=== PATIENT | female | born 1975 | race Asian ===

== ENCOUNTER 2019-08-22 11:47 | Inpatient (IN) | payer BC, OTHER ==
--- NOTE | 2019-08-22 14:38 | PDOC ---
History of Present Illness - General History Source: Patient Exam Limitations: Clinical Condition - History of Present Illness Initial Comments: 08/22/19 14:31 Patient with no significant past medical history centime by PCP for admission due to midsternal chest pain since yesterday with intermittent shortness of breath. Patient reports chest pain is resolved now. Patient reported paternal history of MT at age of 78. Denies numbness or tingling sensation, nausea, vomiting, dizziness, weakness. Denies any other symptoms Is this a multiple visit Asthma Patient?: No Timing/Duration: 24 hours <Devon Molina - Last Filed: 08/22/19 14:47> <Melquiades Duran - Last Filed: 08/22/19 15:42> - General Chief Complaint: Chest Pain Stated Complaint: SENT BY PCP Time Seen by Provider: 08/22/19 14:02 Past History - Past Medical History COPD: No - Immunization History Immunization Up to Date: No - Psycho Social/Smoking Cessation Hx Smoking History: Never smoked Have you smoked in the past 12 months: No Information on smoking cessation initiated: No Hx Alcohol Use: No Drug/Substance Use Hx: No <Devon Molina - Last Filed: 08/22/19 14:47> <Melquiades Duran - Last Filed: 08/22/19 15:42> - Past Medical History Allergies/Adverse Reactions: Allergies Allergy/AdvReac Type Severity Reaction Status Date / Time No Known Allergies Allergy Verified 08/22/19 12:04 Home Medications: Ambulatory Orders NK [No Known Home Medication] 08/22/19 Review of Systems - Review of Systems Able to Perform ROS?: Yes Is the patient limited Kinyarwanda proficient: No Constitutional: No: Chills, Fever, Malaise Respiratory: No: Symptoms reported, See HPI, Cough, Orthopnea, Shortness of Breath, SOB with Exertion, SOB at Rest, Stridor, Wheezing, Productive cough, Hemoptysis, Other Cardiac (ROS): Yes: Symptoms Reported, See HPI, Chest Pain (mid-sternum CP resolved). No: Edema, Irregular Heart Rate, Lightheadedness, Palpitations, Syncope, Chest Tightness, Other ABD/GI: No: Nausea, Vomiting, Abdominal cramping Musculoskeletal: No: Symptoms Reported Neurological: No: Symptoms reported, Headache, Numbness, Paresthesia, Seizure, Ataxia, Dizziness All Other Systems: Reviewed and Negative <Devon Molina - Last Filed: 08/22/19 14:47> *Physical Exam - Vital Signs Last Vital Signs Temp Pulse Resp BP Pulse Ox 98.4 F 97 H 18 114/82 98 08/22/19 12:00 08/22/19 12:00 08/22/19 12:00 08/22/19 12:00 08/22/19 12:00 - Physical Exam Comments: 08/22/19 14:41 GENERAL: Well developed, well nourished. Awake and alert. No acute distress. HEENT: Normocephalic, atraumatic. PERRLA, EOMI. No conjunctival pallor. Sclera are non-icteric. Moist mucous membranes. Oropharynx is clear. NECK: Supple. Full ROM. CARDIOVASCULAR: Regular rate and rhythm. No murmurs, rubs, or gallops. Distal pulses are 2+ and symmetric. PULMONARY: No evidence of respiratory distress. Lungs clear to auscultation bilaterally. No wheezing, rales or rhonchi. ABDOMINAL: Soft. Non-tender. Non-distended. No rebound or guarding. No organomegaly. Normoactive bowel sounds. MUSCULOSKELETAL Normal range of motion at all joints. SKIN: Warm and dry. Normal capillary refill. No rashes. No cyanosis. NEUROLOGICAL: Alert, awake, appropriate. Gait is normal without ataxia. PSYCHIATRIC: Cooperative. Good eye contact. Appropriate mood General Appearance: Yes: Nourished, Appropriately Dressed. No: Apparent Distress <Devon Molina - Last Filed: 08/22/19 14:47> - Vital Signs Last Vital Signs Temp Pulse Resp BP Pulse Ox 98.4 F 97 H 18 114/82 98 08/22/19 12:00 08/22/19 12:00 08/22/19 12:00 08/22/19 12:00 08/22/19 12:00 <Melquiades Duran - Last Filed: 08/22/19 15:42> ED Treatment Course - LABORATORY CBC & Chemistry Diagram: 08/22/19 14:18 08/22/19 14:18 <Devon Molina - Last Filed: 08/22/19 14:47> - LABORATORY CBC & Chemistry Diagram: 08/22/19 14:18 08/22/19 14:18 - ADDITIONAL ORDERS Additional order review: Laboratory Results 08/22/19 08/22/19 08/22/19 14:18 14:18 14:18 PT with INR 12.20 INR 1.03 PTT (Actin FS) 38.7 H Sodium 137 Potassium 3.6 Chloride 102 Carbon Dioxide 29 Anion Gap 6 L BUN 11.0 Creatinine 0.6 Est GFR (CKD-EPI)AfAm 126.69 Est GFR (CKD-EPI)NonAf 109.31 Random Glucose 99 Calcium 9.1 Total Bilirubin 0.6 AST 13 L ALT 20 Alkaline Phosphatase 55 Creatine Kinase Troponin I Total Protein 8.0 Albumin 4.0 Serum , Qual Negative 08/22/19 14:18 PT with INR INR PTT (Actin FS) Sodium Potassium Chloride Carbon Dioxide Anion Gap BUN Creatinine Est GFR (CKD-EPI)AfAm Est GFR (CKD-EPI)NonAf Random Glucose Calcium Total Bilirubin AST ALT Alkaline Phosphatase Creatine Kinase 118 Troponin I < 0.02 Total Protein Albumin Serum , Qual 08/22/19 14:18 RBC 4.36 MCV 87.6 MCHC 33.7 RDW 13.1 MPV 9.0 Neutrophils % 55.0 Lymphocytes % 35.3 Monocytes % 7.9 Eosinophils % 0.8 Basophils % 1.0 - RADIOLOGY Radiology Studies Ordered: Category Date Time Status CXRPORT [CHEST X-RAY PORTABLE*] [RAD] Stat Radiology 08/22/19 14:03 Ordered <Melquiades Duran - Last Filed: 08/22/19 15:42> Medical Decision Making - Medical Decision Making 08/22/19 14:33 Patient with no significant past medical history centime by PCP for admission due to midsternal chest pain since yesterday with intermittent shortness of breath. Patient reports chest pain is resolved now. Patient reported paternal history of MT at age of 78. Denies numbness or tingling sensation, nausea, vomiting, dizziness, weakness. Patient report had one episode of elevated blood pressure 2 weeks ago but has no diagnosis of hypertension Denies any other symptoms Clinical exam unremarkable with normal cardiac lung exam. EKG shows normal sinus rhythm. Patient no acute distress. Called and spoke over to patient PCP Dr. Barton who wants patient admitted with cardiology Dr. Mayen consult for echo tomorrow. CBC, CMP, PT, PTT urine hCG and cardiac profile lab ordered. Chest x-ray ordered to rule out acute chest pathology. <Devon Molina - Last Filed: 08/22/19 14:47> - Medical Decision Making 08/22/19 15:41 I reviewed the case of the mid-level practitioner and was available for consultation while in the emergency department <Melquiades Duran - Last Filed: 08/22/19 15:42> Discharge - Discharge Information Problems reviewed: Yes - Admission Yes <Devon Molina - Last Filed: 08/22/19 14:47> <Melquiades Duran - Last Filed: 08/22/19 15:42> - Discharge Information Clinical Impression/Diagnosis: Chest pain Qualifiers: Chest pain type: unspecified Qualified Code(s): R07.9 - Chest pain, unspecified Condition: Stable Disposition: HOME
[2019-08-22 14:42] LABS: EOS % 0.8 % (0-4.5); HEMATOCRIT 38.2 % (32.4-45.2); HEMOGLOBIN 12.9 GM/dL (10.7-15.3); LYMPH % 35.3 % (8-40); MCH 29.5 pg (25.7-33.7); MCHC 33.7 g/dl (32.0-36.0); MEAN CELL VOLUME 87.6 fl (80-96); MONO % 7.9 % (3.8-10.2); PLATELET COUNT 236 K/MM3 (134-434); RBC 4.36 M/mm3 (3.60-5.2); RDW 13.1 % (11.6-15.6); WHITE BLOOD COUNT 7.3 K/mm3 (4.0-10.0)
[2019-08-22 15:10] LABS: INR 1.03 (0.83-1.09); PROTHROMBIN TIME (PATIENT) 12.2 SEC (9.7-13.0)
[2019-08-22 15:13] LABS: ACTIVATED PTT 38.7 SECONDS (25.2-36.5)
[2019-08-22 15:15] LABS: BILIRUBIN,TOTAL 0.6 mg/dL (0.2-1); CALCIUM 9.1 mg/dL (8.5-10.1); CREATININE 0.6 mg/dL (0.55-1.3); POTASSIUM 3.6 mmol/L (3.5-5.1)
--- NOTE | 2019-08-22 16:28 | HP ---
Admitting History and Physical - Primary Care Physician PCP: Padmini Love - Admission Chief Complaint: chest pain History of Present Illness: Patient is a 44 y/o female with no significant past medical history. Patient was sent by PCP to ER for evaluation of chest pain. Patient states that yesterday she develop non-radiating, pressure like mid chest pain accompanied with SOB. Denies experiencing dizziness, palpitations with chest pain. There were no alleviating or exacerbating factors. History Source: Patient Limitations to Obtaining History: No Limitations - Smoking History Smoking history: Never smoked Have you smoked in the past 12 months: No - Alcohol/Substance Use Hx Alcohol Use: No - Social History Usual Living Arrangement: Yes: With Spouse ADL: Independent History of Recent Travel: No Home Medications - Allergies Allergies/Adverse Reactions: Allergies Allergy/AdvReac Type Severity Reaction Status Date / Time No Known Allergies Allergy Verified 08/22/19 12:04 - Home Medications Home Medications: Ambulatory Orders NK [No Known Home Medication] 08/22/19 Review of Systems - Review of Systems Constitutional: reports: No Symptoms Eyes: reports: No Symptoms HENT: reports: No Symptoms Neck: reports: No Symptoms Cardiovascular: reports: Chest Pain, Shortness of Breath Respiratory: reports: No Symptoms Gastrointestinal: reports: No Symptoms Genitourinary: reports: No Symptoms Breasts: reports: No Symptoms Reported Musculoskeletal: reports: No Symptoms Integumentary: reports: No Symptoms Neurological: reports: No Symptoms Endocrine: reports: No Symptoms Hematology/Lymphatic: reports: No Symptoms Psychiatric: reports: No Symptoms Physical Examination Vital Signs: Vital Signs Temperature 98.4 F 08/22/19 12:00 Pulse Rate 97 H 08/22/19 12:00 Respiratory Rate 18 08/22/19 12:00 Blood Pressure 114/82 08/22/19 12:00 O2 Sat by Pulse Oximetry (%) 98 08/22/19 12:00 Constitutional: Yes: No Distress, Calm Eyes: Yes: Conjunctiva Clear HENT: Yes: Atraumatic Neck: Yes: Supple Cardiovascular: Yes: Regular Rate and Rhythm Respiratory: Yes: Regular, CTA Bilaterally Gastrointestinal: Yes: Normal Bowel Sounds, Soft Musculoskeletal: Yes: WNL Extremities: Yes: WNL Edema: No Neurological: Yes: Alert, Oriented Psychiatric: Yes: Alert, Oriented Labs: CBC, BMP 08/22/19 14:18 08/22/19 14:18 Problem List - Problems (1) Chest pain Assessment/Plan: -Cardiology on board -tele monitoring -trop neg x 1 -stress test -nitro prn for chest pain -stress echo Code(s): R07.9 - CHEST PAIN, UNSPECIFIED Qualifiers: Chest pain type: unspecified Qualified Code(s): R07.9 - Chest pain, unspecified Assessment/Plan see problem list dvt ppx
--- NOTE | 2019-08-22 16:59 | CON.CARD ---
Consult Consult Specialty:: Cardiology Reason for Consultation:: Chest pain - History of Present Illness Chief Complaint: Chest pain History of Present Illness: This is a 44 year old female with no significant PMH other than gestational DM. She presents now with chest pain that occurred yesterday. She described a mid sternal pain that was non radiating, occurred while she was mopping the floor and lasted about one hour. Family History: father had an ME at age 80. EKG NSR with no acute changes. Trop x 1 negative - Alcohol/Substance Use Hx Alcohol Use: No - Smoking History Smoking history: Never smoked Have you smoked in the past 12 months: No Home Medications - Allergies Allergies/Adverse Reactions: Allergies Allergy/AdvReac Type Severity Reaction Status Date / Time No Known Allergies Allergy Verified 08/22/19 12:04 - Home Medications Home Medications: Ambulatory Orders NK [No Known Home Medication] 08/22/19 Vital Signs: Vital Signs Temperature 98.4 F 08/22/19 12:00 Pulse Rate 97 H 08/22/19 12:00 Respiratory Rate 18 08/22/19 12:00 Blood Pressure 114/82 08/22/19 12:00 O2 Sat by Pulse Oximetry (%) 98 08/22/19 12:00 Constitutional: Yes: Well Nourished Eyes: Yes: WNL HENT: Yes: WNL Neck: Yes: WNL Respiratory: Yes: WNL, CTA Bilaterally Gastrointestinal: Yes: Soft Cardiovascular: Yes: Regular Rate and Rhythm Heart Sounds: Yes: S1, S2 Edema: No Neurological: Yes: Alert, Oriented - Other Data Labs, Other Data: CBC, BMP 08/22/19 14:18 08/22/19 14:18 INR, PTT INR 1.03 (0.83-1.09) 08/22/19 14:18 Troponin, BNP 08/22/19 14:18 Troponin I < 0.02 Troponin, BNP 08/22/19 14:18 Troponin I < 0.02 Assessment/Plan 44 year old female with no significant PMH other than gestational DM. She presents now with chest pain that occurred yesterday. She described a mid sternal pain that was non radiating, occurred while she was mopping the floor and lasted about one hour. EKG NSR with no acute changes. Trop x 1 negative Chest pain Finish troponin sets Would evaluate with a stress test (I preferred stress echocardiograms in young female patients) She is on no medications at this time.
[2019-08-22] MEDS ORDERED: NITROGLYCERIN SUBLINGUAL 1/150 0.4 MG TAB SL PRN (21:07)
[2019-08-22] MEDS ORDERED: ACETAMINOPHEN 325 MG TABLET (FP) PO PRN (21:11)
[2019-08-23 01:21] VITALS: BMI 28.4
[2019-08-23 07:06] LABS: BASO % 0.7 % (0-2.0); EOS % 1.4 % (0-4.5); HEMATOCRIT 36.4 % (32.4-45.2); HEMOGLOBIN 12.5 GM/dL (10.7-15.3); LYMPH % 36.3 % (8-40); MCH 29.8 pg (25.7-33.7); MCHC 34.2 g/dl (32.0-36.0); MEAN CELL VOLUME 87.1 fl (80-96); MEAN PLT VOLUME 9.1 fl (7.5-11.1); MONO % 8.8 % (3.8-10.2); NEUT % 52.8 % (42.8-82.8); PLATELET COUNT 218 K/MM3 (134-434); RBC 4.18 M/mm3 (3.60-5.2); RDW 13.3 % (11.6-15.6); WHITE BLOOD COUNT 5.5 K/mm3 (4.0-10.0)
[2019-08-23 07:39] LABS: CHOLESTEROL 191 mg/dL (50-200); HDL CHOLESTEROL 43 mg/dL (40-60); LDL CHOLESTEROL (ONLY SJRH) 122 mg/dL (5-100); TRIGLYCERIDES 205 mg/dL (0-150)
[2019-08-23 07:51] LABS: ALBUMIN 3.7 g/dl (3.4-5.0); ALK PHOS 47 U/L (45-117); ANION GAP 5 MMOL/L (8-16); BILIRUBIN,TOTAL 0.7 mg/dL (0.2-1); BLOOD UREA NITROGEN 12.6 mg/dL (7-18); CALCIUM 8.5 mg/dL (8.5-10.1); CHLORIDE 104 mmol/L (98-107); CO2 28 mmol/L (21-32); CREATININE 0.7 mg/dL (0.55-1.3); GLUCOSE,RANDOM 91 mg/dL (74-106); MAGNESIUM 2.2 mg/dL (1.8-2.4); POTASSIUM 3.9 mmol/L (3.5-5.1); SGOT/AST 12 U/L (15-37); SGPT/ALT 17 U/L (13-61); SODIUM 137 mmol/L (136-145); TOT PROT 7.3 g/dl (6.4-8.2)
--- NOTE | 2019-08-23 10:46 | PN ---
Progress Note, Physician Chief Complaint: Chest pain History of Present Illness: Is having Stress echo at the moment - Current Medication List Current Medications: Active Medications Acetaminophen (Tylenol -) 650 mg PO Q6H PRN PRN Reason: PAIN LEVEL 6-10 Nitroglycerin (Nitrostat -) 0.4 mg SL Q5M PRN PRN Reason: FOR CHEST PAIN - Objective Vital Signs: Vital Signs Temperature 98.2 F 08/23/19 05:27 Pulse Rate 72 08/23/19 08:38 Respiratory Rate 18 08/23/19 08:38 Blood Pressure 128/78 08/23/19 08:38 O2 Sat by Pulse Oximetry (%) 97 08/22/19 20:35 Labs: CBC, BMP 08/23/19 05:55 08/23/19 05:55 INR, PTT INR 1.03 (0.83-1.09) 08/22/19 14:18 Problem List - Problems (1) Chest pain Assessment/Plan: -No prior history, no risk factors -Seen by Cardiology -If stress echo negative, will d/c pt. Problems reviewed: Yes Code(s): R07.9 - CHEST PAIN, UNSPECIFIED Qualifiers: Chest pain type: unspecified Qualified Code(s): R07.9 - Chest pain, unspecified
--- NOTE | 2019-08-23 12:56 | EKG ---
Test Reason : Blood Pressure : / mmHG Vent. Rate : 072 BPM Atrial Rate : 072 BPM P-R Int : 170 ms QRS Dur : 092 ms QT Int : 386 ms P-R-T Axes : 040 028 001 degrees QTc Int : 422 ms POOR DATA QUALITY, INTERPRETATION MAY BE ADVERSELY AFFECTED NORMAL SINUS RHYTHM NONSPECIFIC T WAVE ABNORMALITY ABNORMAL ECG NO PREVIOUS ECGS AVAILABLE Confirmed by FIONA MCINTYRE, ARA ([id number]) on 08/23/2019 12:55:31 PM Referred By: Confirmed By:ARA JAIMES MD
--- NOTE | 2019-08-23 16:00 | ECHO ---
Name: OLINDA WARD Exam:Exerise Stress Echocardiogram Study Date: 08/23/2019 12:31 PM Age: 44 yrs Reason For Study: rule out ischemia Height: 61 in Weight: 150 lb BSA: 1.7 m2 Procedure Details: Exercise Stress Echocardiogram with 2D imaging. Stress Comments Normal resting electrocardiogram. A treadmill exercise test according to Bob protocol was performed. Target Heart Rate was achieved (85% of maximum age-predicted heart rate). Exercise Echocardiogram Negative exercise stress echocardiogram, adequate by heart rate criteria, without symptoms, diagnosti c EKG changes or echocardiographic evidence of ischemia. Interpretation Summary Exercise Stress Echocardiogram with 2D imaging Normal resting electrocardiogram. A treadmill exercise test according to Bob protocol was performed. Target Heart Rate was achieved (85% of maximum age-predicted heart rate). Negative exercise stress echocardiogram, adequate by heart rate criteria, without symptoms, diagnosti c EKG changes or echocardiographic evidence of ischemia Reading Physician: MD Michael Norman 08/23/2019 04:00 PM
--- NOTE | 2019-08-23 16:33 | PN ---
Progress Note, Physician History of Present Illness: seen and examined today in nad. no overnight events. no new complaints. - Current Medication List Current Medications: Active Medications Acetaminophen (Tylenol -) 650 mg PO Q6H PRN PRN Reason: PAIN LEVEL 6-10 Nitroglycerin (Nitrostat -) 0.4 mg SL Q5M PRN PRN Reason: FOR CHEST PAIN - Objective Vital Signs: Vital Signs Temperature 98.1 F 08/23/19 14:00 Pulse Rate 81 08/23/19 14:00 Respiratory Rate 18 08/23/19 14:00 Blood Pressure 117/58 L 08/23/19 14:00 O2 Sat by Pulse Oximetry (%) 97 08/22/19 20:35 Constitutional: Yes: No Distress, Calm Eyes: Yes: Conjunctiva Clear, EOM Intact HENT: Yes: Atraumatic, Normocephalic Neck: Yes: Supple, Trachea Midline Cardiovascular: Yes: Regular Rate and Rhythm, S1, S2. No: Bradycardia, Tachycardia, Pulse Irregular, Bruit, JVD, Gallop, Murmur, Rub, S3, S4, Varicosities Respiratory: Yes: Regular, CTA Bilaterally. No: Rales, Rhonchi, Wheezes Gastrointestinal: Yes: Normal Bowel Sounds, Soft. No: Distention, Tenderness Musculoskeletal: Yes: WNL Extremities: Yes: WNL Edema: No Peripheral Pulses WNL: Yes Peripheral Pulses: Left Doralis Pedis: 2+, Right Dorsalis Pedis: 2+ Neurological: Yes: Alert, Oriented Psychiatric: Yes: Alert, Oriented Labs: CBC, BMP 08/23/19 05:55 08/23/19 05:55 INR, PTT INR 1.03 (0.83-1.09) 08/22/19 14:18 - ....Imaging Chest X-ray: Report Reviewed, Image Reviewed EKG: Report Reviewed, Image Reviewed Other: Report Reviewed, Image Reviewed (tele-nsr, no events recorded) Assessment/Plan 44 year old female with no significant PMH other than gestational DM. She presents now with chest pain that occurred yesterday. She described a mid sternal pain that was non radiating, occurred while she was mopping the floor and lasted about one hour. EKG NSR with no acute changes. Chest pain cardiac enzymes wnl stress echo today 08/23/19 showed no ischemia pt is acceptable for discharge from a cardiac standpoint. please call with any additional questions.
--- NOTE | 2019-08-23 17:41 | DS ---
Physical Examination Vital Signs: Vital Signs Temperature 98.1 F 08/23/19 14:00 Pulse Rate 81 08/23/19 14:00 Respiratory Rate 18 08/23/19 14:00 Blood Pressure 117/58 L 08/23/19 14:00 O2 Sat by Pulse Oximetry (%) 97 08/22/19 20:35 Constitutional: Yes: No Distress Cardiovascular: Yes: WNL Respiratory: Yes: WNL Gastrointestinal: Yes: WNL Labs: CBC, BMP 08/23/19 05:55 08/23/19 05:55 Discharge Summary Problems reviewed: Yes Reason For Visit: CHEST PAIN Current Active Problems Chest pain (Acute) Procedures: Principal: STRESS ECHO Other Procedures: LABS Hospital Course: OBSERVATION R/O OK STRESS TEST NORMAL Health Concerns: N Plan of Treatment: F/U OUTPATIENT Goals: SEE DR LOVE Condition: Stable - Instructions Diet, Activity, Other Instructions: LOW SODIUM Referrals: Padmini Love MD [Primary Care Provider] - Disposition: HOME - Home Medications Comprehensive Discharge Medication List: Ambulatory Orders Acetaminophen [Tylenol .Regular Strength -] 650 mg PO Q6H PRN tablet 08/23/19 Nitroglycerin Sublingual [Nitrostat -] 0.4 mg SL Q5M PRN tab 08/23/19 Prescription Drug Monitoring Program (I-STOP) results: I-STOP not reviewed
[2019-08-23 18:25] VITALS: BP 130/82; PULSE 84; TEMP 98.5
== END 2019-08-23 19:26 | disposition home or self-care (01) | DRG 313 ==
LOC: JER 11:47 → JERBED 14:38 → J4W 20:18
PROVIDERS: ADMIT Family Medicine; ATTEND Family Medicine
DX: R07.9 Chest pain, unspecified (principal); R06.02 Shortness of breath
CPT/HCPCS: 36415; 71046-TC-FY; 80053; 80061; 82550; 83721; 83735; 84436; 84443; 84484; 84703; 85025; 85610; 85730; 93005; 93010; 93351; 99282-25